=== PATIENT | male | born 1955 | race Caucasian/White ===

== ENCOUNTER → 2016-12-29 | Outpatient (CLI) | payer OTHER ==
[~2016-12-29] MED LIST: ADJUSTABLE COMM1 MIS; ALPR.25 PO; ALPR0.25 PO; CPMMACHINE; DICL75 PO; DICL75TA PO; FENO54TA PO; GABA600T PO; LISI-360 PO; LISI-515 PO; LORT5TAB PO; META1TAB19 PO; META800T81 OR; MORP1INJ45 OR; MORP1TAB25 PO; OXYC1TAB63 PO; PRAV80 PO; PRAV80TA2 PO; SERT-132 PO; WALKER WHEELS/F1 MIS
[2016-12-29 09:13] LABS: AUTOMATED NEUTROPHIL # 3.9 TH/MM3 (1.8-7.7); BASOPHIL # 0.1 TH/MM3 (0-0.2); BASOPHIL % 1.2 % (0.0-2.0); EOSINOPHIL # 0.3 TH/MM3 (0-0.4); EOSINOPHIL % 5.6 % (0.0-4.0); HEMATOCRIT 38.8 % (39.0-51.0); HEMO FLAGS DIFF FINAL; LYMPH % 23.2 % (9.0-44.0); LYMPHOCYTE # 1.4 TH/MM3 (1.0-4.8); MEAN CELL VOLUME 83.7 FL (80.0-100.0); MEAN CORPUSCULAR HEMOGLOBIN 28.3 PG (27.0-34.0); MEAN CORPUSCULAR HGB CONC 33.8 % (32.0-36.0); MONO % 5.9 % (0.0-8.0); NEUT % 64.1 % (16.0-70.0); PLATELET COUNT 230 TH/MM3 (150-450); RED BLOOD COUNT 4.63 MIL/MM3 (4.50-5.90); RED CELL DISTRIBUTION WIDTH 14.2 % (11.6-17.2)
[2016-12-29 09:15] LABS: APTT (PATIENT) 30.8 SEC (24.3-30.1); PROTHROMBIN TIME - PATIENT 10.9 SEC (9.8-11.6)
[2016-12-29 09:22] LABS: BLOOD, URINE NEG (NEG); COMMENT (UR) CULT NOT INDICATED; CULTURE IF INDICATED CULT NOT INDICATED; GLUCOSE,URINE NEG (NEG); KETONE, URINE NEG (NEG); MUCUS URINE FEW /lpf (OCC); NITRITE,URINE NEG (NEG); PH, URINE 6.5 (5.0-8.5); URINE COLOR YELLOW (YELLW/STRAW)
[2016-12-29 10:07] LABS: ANION GAP 7 MEQ/L (5-15); AST (GOT) 16 U/L (15-37); BICARBONATE 28.4 MEQ/L (21.0-32.0); BLOOD UREA NITROGEN 22 MG/DL (7-18); CHLORIDE 106 MEQ/L (98-107); GLOMERULAR FILTRATION RATE 80 ML/MIN (>89); GLUCOSE,FASTING 103 MG/DL (74-99); POTASSIUM 4.6 MEQ/L (3.5-5.1); SODIUM (NA) 141 MEQ/L (136-145)
[2016-12-29 10:11] LABS: ALKALINE PHOSPHATASE 76 U/L (45-117); ALT (GPT) 25 U/L (12-78); TOTAL BILIRUBIN ADULT 0.3 MG/DL (0.2-1.0)
--- NOTE | 2016-12-31 | EKG ---
Date Performed: 12/29/2016 Time Performed: 08:20:36 PTAGE: 61 years EKG: SINUS BRADYCARDIA BORDERLINE ECG NO PREVIOUS TRACING DOCTOR: Krysta Villafana Interpretating Date/Time 12/30/2016 23:59:28
== END ==
LOC: CPRE 08:00
PROVIDERS: ATTEND Surgery
DX: Z01.812 Encounter for preprocedural laboratory examination (principal); Z01.810 Encounter for preprocedural cardiovascular examination; R94.31 Abnormal electrocardiogram [ECG] [EKG]
CPT/HCPCS: 36415; 80053; 81001; 85025; 85610; 85730; 93005

== ENCOUNTER 2017-01-07 05:54 | Inpatient (IN) | payer OTHER ==
--- NOTE | 2017-01-06 19:25 | MH ---
cc: Addison NGUYEN M.D. DATE OF ADMISSION 01/07/2017 ADMISSION DIAGNOSIS Osteoarthritic degeneration both left and right knees now being admitted for bilateral total knee arthroplasty. ADMISSION HISTORY AND PHYSICAL This pleasant 61-year-old male is being admitted today for bilateral total knee arthroplasties due to severe painful osteoarthritic degeneration of his knees. PAST MEDICAL HISTORY Other past history: 1. He has a history of osteoarthritis. 2. Anxiety. 3. Hypertension. CURRENT MEDICATIONS 1. Morphine 30 mg three times a day for chronic pain control. 2. Metaxalone. 3. Gabapentin. 4. Voltaren which stopped before surgery. 5. Lisinopril. 6. Fenofibrate. 7. Pravastatin. 8. Alprazolam. 9. Sertraline. REVIEW OF SYSTEMS Noncontributory. FAMILY HISTORY Noncontributory. PAST SURGICAL HISTORY He had surgery in the past for both left and right shoulder replacements. SOCIAL HISTORY He does not smoke and does drink some alcohol. ALLERGIES NO KNOWN ALLERGIES. PHYSICAL EXAMINATION GENERAL: We find a 61-year-old male well-developed, well-nourished alert and oriented times three complaining of pain in his knees. VITAL SIGNS: Blood pressure 120/80, pulse 70 and regular, respirations 18, temperature 98, pulse oximetry 96% on room air. HEENT: Eyes PERRL, EOMI. Ears, nose, mouth clear. NECK: Supple. LUNGS: Clear. HEART: Regular rate. ABDOMEN: Soft. Positive bowel sounds. Nontender. EXTREMITIES: Reveal both knees be tender over the medial joint surfaces with crepitance throughout range of motion. He is neurovascularly intact to his toes. IMPRESSION Severe painful osteoarthritic degeneration both knees. PLAN Admission for bilateral total knee arthroplasty today. The patient understands the procedure well, understands the use Hibiclens scrub and Bactroban preoperatively and plans on going to rehab after surgery. MD RAMAKRISHNA Vivar/PATRICIA /7:00 PM /7:18 PM 20
[~2017-01-07] VITALS: Ht 175.3 cm; Wt 101.2 kg
[~2017-01-07 05:54] MED LIST changes: -ADJUSTABLE COMM1 MIS; -ALPR.25 PO; -CPMMACHINE; -DICL75 PO; -LISI-360 PO; -LORT5TAB PO; -META800T81 OR; -MORP1INJ45 OR; -OXYC1TAB63 PO; -PRAV80 PO; -WALKER WHEELS/F1 MIS
[2017-01-07] MEDS ORDERED: TRANEXAMIC ACID INJ 1,000 MG in SODIUM CHLORIDE 0.9% INJ 100 ML IV SCH ×2 (06:30→09:00)
[2017-01-07] MEDS ORDERED: METOPROLOL TARTRATE 25 MG TAB PO PRN (06:30)
[2017-01-07] MEDS ORDERED: EXPAREL PERI-ARTICULAR INJECTION (TOTAL VOL. 120 ML) P-ARTICULR SCH ×2 (06:30)
[2017-01-07] MEDS ORDERED: SODIUM CHLORID 0.9% 500 ML IV PRN (06:30)
[2017-01-07] MEDS ORDERED: VANCOMYCIN 1000 MG/NS 250 ML (for <70 kg) IV SCH ×2 (06:30)
[2017-01-07] MEDS ORDERED: CHLORHEXIDINE GLUCONATE 2 % 1 PACK (2 CLOTHS) TOPICAL PRN (06:30)
[2017-01-07] MEDS ORDERED: POVIDONE IODINE 5% (ANTISEPSIS KIT) 4 APPLICATIONS EACH NARE PRN (06:30)
[2017-01-07] MEDS ORDERED: INSULIN HUMAN REGULAR 1,000 UNITS/10 ML VIAL SQ PRN (06:30)
[2017-01-07] MEDS ORDERED: LACTATED RINGER'S 1000 ML IV PRN (06:30)
[2017-01-07] MEDS ORDERED: CHLORHEXIDINE GLUCONATE 4% SOLN 120 ML BTL TOPICAL SCH (06:30)
[2017-01-07] MEDS ORDERED: ceFAZolin 2 GM PREMIX 50 ML IV SCH (06:30)
[2017-01-07 06:37] VITALS: BP 109/68; PULSE 64; RESP 18; TEMP 98.5; O2SAT 97
[2017-01-07] MEDS ORDERED: MIDAZOLAM HCL 2 MG/2 ML VIAL ONE ×2 (07:40→13:03)
[2017-01-07] MEDS ORDERED: FAMOTIDINE 20 MG/2 ML VIAL ONE (07:40)
[2017-01-07] MEDS ORDERED: KETAMINE HCL 500 MG/5 ML VIAL ONE (08:00)
[2017-01-07] MEDS ORDERED: ceFAZolin INJ 1,000 MG VIAL TOPICAL ONE (08:31)
[2017-01-07] MEDS ORDERED: ROPIVACAINE 0.5% PF INJ 30 ML VIAL NERV BLOCK ONE (08:45)
[2017-01-07] MEDS ORDERED: DEXAMETHASONE SOD PHOS PF 10 MG/ML VIAL IV ONE (08:45)
[2017-01-07] MEDS ORDERED: ALPRAZolam 0.25 MG TAB PO PRN (12:00)
[2017-01-07] MEDS ORDERED: ceFAZolin INJ 1,000 MG VIAL IV ONE (12:05)
[2017-01-07] MEDS ORDERED: CPMMACHINE (12:10)
[2017-01-07] MEDS ORDERED: ADJUSTABLE COMM1 MIS (12:10)
[2017-01-07] MEDS ORDERED: WALKER WHEELS/F1 MIS (12:10)
[2017-01-07] MEDS ORDERED: Post-op Orders (for Pharmacy) MISC XX ONE (12:15)
[2017-01-07] MEDS ORDERED: diphenhydrAMINE HCL 50 MG/ML VIAL IV PRN (12:15)
[2017-01-07] MEDS ORDERED: TEMAZEPAM 15 MG CAP PO PRN (12:15)
[2017-01-07] MEDS ORDERED: ACETAMINOPHEN 325 MG TAB PO PRN (12:15)
[2017-01-07] MEDS ORDERED: NALOXONE HCL 0.4 MG/ML AMP IV PRN (12:15)
[2017-01-07] MEDS ORDERED: TRANEXAMIC ACID INJ 0 MG in SODIUM CHLORIDE 0.9% INJ 100 ML IV SCH (12:15)
[2017-01-07] MEDS ORDERED: ONDANSETRON HCL 4 MG/2 ML VIAL IVP PRN (12:15)
[2017-01-07] MEDS ORDERED: SODIUM CHLORIDE 0.9% FLUSH 5 ML FLUSH IVF PRN (12:15)
[2017-01-07] MEDS ORDERED: DO NOT ADM ANY ANTICOAGULANT DRUGS PRN (12:30)
[2017-01-07] MEDS ORDERED: *ONDANSETRON 4 MG VIAL PERIprocedural Use ONLY ONE (12:35)
--- NOTE | 2017-01-07 12:43 | HHI.PR ---
Immediate Post Op Note Procedure Date: Jan 07, 2017 Pre Op Diagnosis: (1) Osteoarthritis of knees, bilateral Post Op Diagnosis: (1) Osteoarthritis of knees, bilateral Surgeon: Addison Worley [employer] Counselor(s): Nilda ONEILL and Jazmine ONEILL Procedure: Bilateral total knee Arthroplasty Complications: none Specimen(s) removed: none Estimated blood loss: 200cc Anesthesia: General, Regional Block (blocks bilateral knees) Drains: None IVF Tourniquet time (min at mmHg) Time Right Knee 80 mins Time Left Knee 83 mins Patient to: PACU Patient Condition: Good Implant/Devices: SEE IMPLANT LOG (if applicable) Date/Time of Procedure: SEE SURGICAL CARE RECORD Nilda Martínez Jan 07, 2017 12:43
[2017-01-07] MEDS ORDERED: *HYDROmorphone PF 1 MG VIAL PERIprocedural Use ONLY ONE (12:53)
[2017-01-07] MEDS ORDERED: fentaNYL CITRATE 250 MCG/5 ML AMP ONE (13:03)
[2017-01-07] MEDS ORDERED: ACETAMINOPHEN 1000 MG/100 ML VIAL IV ONE ×2 (13:19→14:30)
--- NOTE | 2017-01-07 13:32 | RADRPT ---
EXAM DATE/TIME: 01/07/2017 13:20 [facility] COMPARISON: No previous studies available for comparison. INDICATIONS : Evaluate right knee post arthroplasty MEDICAL HISTORY : Arthritis. SURGICAL HISTORY : None. ENCOUNTER: Initial ACUITY: 1 day PAIN SCORE: 6/10 LOCATION: Right Knee FINDINGS: Patient is status post placement of a right knee prosthesis. There is good position and alignment of the prosthesis and bony structures. The bony structures are grossly intact. Postsurgical changes are present. CONCLUSION: Good position and alignment on this postoperative examination. German Dorsey MD on January 07, 2017 at 13:29 Board Certified Radiologist. This report was verified electronically.
--- NOTE | 2017-01-07 13:32 | RADRPT ---
EXAM DATE/TIME: 01/07/2017 13:16 [facility] COMPARISON: No previous studies available for comparison. INDICATIONS : Evaluate left knee post arthroplasty MEDICAL HISTORY : Arthritis. SURGICAL HISTORY : None. ENCOUNTER: Initial ACUITY: 1 day PAIN SCORE: 6/10 LOCATION: Left Knee FINDINGS: Patient is status post placement of a left knee prosthesis. There is good position and alignment of t he prosthesis and bony structures. The bony structures are grossly intact. Postsurgical changes are p resent. CONCLUSION: Good position and alignment on this postoperative examination. German Dorsey MD on January 07, 2017 at 13:29 Board Certified Radiologist. This report was verified electronically.
[2017-01-07] MEDS ORDERED: PROPOFOL 200 MG/20 ML AMP IV ONE (13:52)
[2017-01-07] MEDS ORDERED: PHENYLEPH/NS 1000 MCG/10 ML SYR IV ONE (13:53)
[2017-01-07] MEDS ORDERED: LACTATED RINGER'S 1000 ML INJ 1,000 ML IV ONE (13:53)
[2017-01-07] MEDS ORDERED: ePHEDrine/NS 25 MG/5 ML SYR IV ONE (13:53)
[2017-01-07] MEDS ORDERED: ONDANSETRON HCL 4 MG/2 ML VIAL IV PUSH ONE (13:53)
[2017-01-07] MEDS ORDERED: *morphine SULFATE 8 MG/ML PERIprocedure ONLY ONE (13:54)
[2017-01-07] MEDS: MORPHINE SULFATE 30 MG/30 ML PCA IV SCH ×2 (13:58→23:00)
[2017-01-07] MEDS: PCA - TOTAL MG MORPHINE DELIVERED PER SHIFT SCH ×2 (14:00→22:00)
--- NOTE | 2017-01-07 15:28 | PD.CONS ---
HPI Service [facility] Hospitalists Consult Requested By Dr. Worley Reason for Consult Medical management and assistance with pain control Primary Care Physician Bear Alarcon DO Diagnoses: (1) Osteoarthritis of knees, bilateral (2) Status post total bilateral knee replacement using cement History of Present Illness Mr. Andrade is a 61-year-old male patient with a known medical history of osteoarthritis of bilateral knee and shoulders, hypertension, dyslipidemia, anxiety and chronic back pain due to degenerative disc disease who underwent a bilateral knee replacement by Dr. Worley today 01/07/17. Hospitalist team has been consulted for medical management and assisting with pain control. Patient states that he underwent right and left shoulder replacements back in 2014 and 2015 due to chronic osteoarthritis of bilateral shoulders. Patient also has been treating bilateral osteoarthritis of the knees with conservative management for many years now. He states he utilized cortisone shots, physical therapy and pain control with little effect. He also has a history of degenerative disc disease in L1, L2, and S1 for many years now. He utilizes chiropractic medicine, physical therapy, and pain medication via [facility]. Patient states his hypertension and dyslipidemia are well controlled with medication. Denies any recent illness, fever, chills, cough, headache, shortness of breath, chest pain, abdominal pain, nausea, vomiting, diarrhea or dysuria. Review of Systems Musculoskeletal: COMPLAINS OF: Joint pain (bilateral knees) Except as stated in HPI: all other systems reviewed are Neg Past Family Social History Allergies: Coded Allergies: No Known Allergies (Unverified , 12/29/16) Past Medical History Anxiety Hypertension Dyslipidemia Osteoarthritis of bilateral knees and shoulders Chronic back pain Past Surgical History Bilateral shoulder replacement 2015 Reported Medications Reported Meds & Active Scripts Active Reported Sertraline (Sertraline HCl) 50 Mg Tab 50 Mg PO DAILY Pravastatin 80 Mg Tab 80 Mg PO HS Metaxalone 800 Mg Tab 800 Mg PO TID Morphine ER (Morphine Sulfate) 30 Mg Tab 30 Mg PO Q8H Lisinopril 20 Mg Tab 20 Mg PO HS Gabapentin 600 Mg Tab 600 Mg PO TID Fenofibrate 54 Mg Tab 54 Mg PO DAILY Diclofenac Sodium DR (Diclofenac Sodium) 75 Mg Tabdr 75 Mg PO BID Alprazolam 0.25 Mg Tab 0.25 Mg PO DAILY PRN Active Ordered Medications Current Medications Medications (Trade) Dose Ordered Sig/Sneha Route Start Time Stop Time Status Last Admin Chlorhexidine Gluconate 1 applic 1 applic ONCE TOPICAL 01/07/17 06:30 01/10/17 06:29 Tranexamic Acid 1000 mg/Sodium Chloride 110 ml @ 200 mls/hr ONCE IV 01/07/17 06:30 01/07/17 16:00 01/07/17 08:16 Bupivacaine Liposome 20 ml/ Sodium Chloride 120 ml @ 240 mls/hr ONCE P-ARTICULR 01/07/17 06:30 01/07/17 16:00 (Cyklokapron Inj/ NS Inj) 110 ml @ 200 mls/hr ONCE IV 01/07/17 09:00 01/08/17 08:59 01/07/17 11:15 (Xanax) 0.25 mg DAILY PRN PO 01/07/17 12:00 (Neurontin) 600 mg TID PO 01/07/17 13:00 (Prinivil) 20 mg HS PO 01/07/17 21:00 (Skelaxin) 800 mg TID PO 01/07/17 18:00 (Oramorph Sr) 30 mg Q8HR PO 01/07/17 14:00 (Pravachol) 80 mg HS PO 01/07/17 21:00 (Zoloft) 50 mg DAILY PO 01/08/17 09:00 Fenofibrate 48 mg 48 mg DAILY PO 01/08/17 09:00 (Lr 1000 ml Inj) 1,000 ml @ 80 mls/hr [id number] IV 01/07/17 12:01 (NS Flush) 2 ml UNSCH PRN IVF 01/07/17 12:15 IV Flush 2 ml 2 ml BID IVF 01/07/17 21:00 (Ancef Inj/NS Inj) 100 ml @ 200 mls/hr Q6H IV 01/07/17 18:00 01/08/17 06:29 (Lovenox Inj) 30 mg Q12H SQ 01/08/17 12:00 (Percocet 5-325 Mg) 1 tab Q4H PRN PO 01/07/17 12:15 (Percocet 5-325 Mg) 2 tab Q4H PRN PO 01/07/17 12:15 (Tylenol) 650 mg Q6H PRN PO 01/07/17 12:15 (Theragran M Tab) 1 tab BID PO 01/08/17 21:00 03/09/17 20:59 (Zofran Inj) 4 mg Q6H PRN IVP 01/07/17 12:15 (Colace) 100 mg BID PO 01/08/17 21:00 (Restoril) 15 mg HS PRN PO 01/07/17 12:15 (Narcan Inj) 0.4 mg UNSCH PRN IV 01/07/17 12:15 (Benadryl Inj) 25 mg Q6H PRN IV 01/07/17 12:15 (Morphine 1 Mg/ ml TABLE TOP TILE SETTER) 30 mg UNSCH IV 01/07/17 12:15 01/07/17 13:58 TABLE TOP TILE SETTER Dosage Infused (Pha) 1 Q8HR .XX 01/07/17 14:00 Miscellaneous Information ALL NURSING DEPARTME... UNSCH PRN .XX 01/07/17 12:30 01/08/17 12:29 Family History No significant paternal medical history. Maternal medical history significant for diabetes mellitus. Social History Patient lives at home with , no children. Denies any past or present tobacco use. Admits to occasional alcohol use. Denies any illicit drug use. Physical Exam Vital Signs Vital Signs Date Time Temp Pulse Resp B/P Pulse Ox O2 Delivery O2 Flow Rate FiO2 01/07/17 13:58 16 01/07/17 06:37 98.5 64 18 109/68 97 Physical Exam GENERAL: Well-nourished, well-developed patient, in no apparent distress. SKIN: warm and dry. Bilateral knee passive motion in place, bilateral knee/leg dressings in place, c/d/i. HEENT: Atraumatic. Normocephalic. Pupils equal round and reactive. Extraocular motions intact. No scleral icterus. Nose without bleeding. Airway patent. NECK: Trachea midline. No JVD. Supple. CARDIOVASCULAR: Regular rate and rhythm. No murmur appreciated. RESPIRATORY: Clear to auscultation. Breath sounds equal bilaterally. No wheezes , rales, or rhonchi. GASTROINTESTINAL: Abdomen soft, non-tender, nondistended. No guarding. MUSCULOSKELETAL: Extremities without clubbing, cyanosis, or edema. NEUROLOGICAL: Awake and alert. Cranial nerves II through XII intact. Motor and sensory grossly within normal limits. Five out of 5 muscle strength in all muscle groups. Normal speech. Laboratory Laboratory Tests Test 7/6/17 06:45 Blood Type AB POSITIVE Antibody Screen NEGATIVE Blood Bank Comment Imaging Last Impressions Knee X-Ray 01/07/17 1201 Signed Impressions: Service Date/Time: January 13:16 - CONCLUSION: Good position and alignment on this postoperative examination. German Dorsey MD Assessment and Plan Assessment and Plan Mr. Andrade is a 61-year-old male patient with a known medical history of osteoarthritis of bilateral knee and shoulders, hypertension, dyslipidemia, anxiety and chronic back pain due to degenerative disc disease who underwent a bilateral knee replacement by Dr. Worley today 01/07/17. Hospitalist team has been consulted for medical management and assisting with pain control. Status post bilateral knee replacement - Post op day 0, 01/07/17 - Control pain, Oramorph SR 30 mg PO q8hr. Percocet 5/325 mg PO q4h PRN per pain scale. Morphine TABLE TOP TILE SETTER IV per protocol. - Monitor for nausea, Zofran 4 mg IV q6h - Acetaminophen available PRN fever. - Continue IVF until tolerating PO. Encourage PO intake as tolerated. - Monitor for constipation, Colace 100 mg PO BID, - Dressing change recommendations and passive motion management per surgery. Hypertension, chronic: Resume Lisinopril. Monitor BP. Dyslipidemia, chronic: Resume home fenofibrate and Pravastatin Anxiety, chronic: Alprazolam 0.25 mg PO daily PRN anxiety and resume home Sertraline 50 mg PO daily. Back pain, chronic: Gabapentin 600 mg PO TID and Metaxalone 800 mg PO TID. GI Prophylaxis: Pepcid DVT Prophylaxis: Lovenox 30 mg sq q12 hr. Thank you for this consultation. We will follow with you. Seen in his bedroom stable, no nausea, vomit or diarrhea, examined status post surgery, added laboratory for tomorrow, CMP, Magnesium, Phosphorus Lipid profile and TSH Code Status Full Code Discussed Condition With Patient and PA Anastacia Loaiza Jan 07, 2017 15:27 Ranjith Villatoro MD Jan 07, 2017 17:35
[2017-01-07] MEDS ORDERED: MAGNESIUM HYDROXIDE SUSP 30 ML CUP PO PRN (15:30)
[2017-01-07 15:43] VITALS: BP 121/66; PULSE 98; RESP 20; TEMP 95.6; O2SAT 98
[2017-01-07 16:22] VITALS: O2SAT 99
[2017-01-07] MEDS: GABAPENTIN 300 MG CAP PO SCH ×2 (16:51→20:09)
[2017-01-07] MEDS: MORPHINE SULFATE 30 MG CONTROLLED RELEASE TAB PO SCH (16:52)
[2017-01-07] MEDS: METAXALONE 800 MG TAB PO SCH (18:00)
[2017-01-07 19:40] VITALS: BP 111/70; PULSE 96; RESP 18; TEMP 98.1; O2SAT 95
[2017-01-07] MEDS: oxyCODONE/ACETAMINOPHEN 5 MG/325 MG TAB PO PRN (20:09)
[2017-01-07] MEDS: PRAVASTATIN SOD 80 MG TAB PO SCH (20:09)
[2017-01-07] MEDS: SODIUM CHLORIDE 0.9% FLUSH 5 ML FLUSH IVF SCH (21:00)
[2017-01-07] MEDS: LISINOPRIL 20 MG TAB PO SCH (21:00)
--- NOTE | 2017-01-07 21:45 | MP ---
cc: Addison NGUYEN M.D. DATE OF SURGERY: 01/07/2017. PREOPERATIVE DIAGNOSIS: Osteoarthritic degeneration both left and right knees. POSTOPERATIVE DIAGNOSIS: Osteoarthritic degeneration both left and right knees. OPERATIVE PROCEDURE PERFORMED: Bilateral total knee arthroplasties using Consensus components; the right knee done first and sizes were a size 5 femur, a 5 tibia, a 10 insert and a size 2 patella with two batches of DePuy cement and the left knee being a size 5 femur, 4 tibia, 12 insert and a size 2 patella with two batches of DePuy cement. SURGEON: Addison Nguyen MD. PRIMARY TEACHER: NINO Hart. SECOND MEDICAL RECORDS FIELD TECHNICIAN: NINO Guillaume. ANESTHESIA: General intubation and blocks. DESCRIPTION OF THE PROCEDURE IN DETAIL: After successful induction of anesthesia, the patient is placed on the operating room table in the supine position. The right knee is prepped and draped in the usual manner. A tourniquet is inflated at the upper thigh and set to 300 mmHg pressure after exsanguination of the lower extremity. A longitudinal incision is made extending from 3 inches proximal to the superior pole of the patella, across the patella in longitudinal fashion, and down past the insertion of the tibial tubercle into the proximal tibia. The incision is carried down through subcutaneous tissue along the medial aspect of the patella and retinaculum, down through the capsule to expose the knee joint. The patella and patellar tendon are freed up enough to allow the patella to be inverted and retracted off the lateral side of the knee joint. The knee joint is left exposed. Small osteophytes are removed. All soft tissue is removed to allow proper position of the femoral and tibial cutting jig guide. The first femoral jig is then inserted along the distal end of the femur after first measuring to decide whether this is a small, medium, or large component. The notch is then drilled and the tibial cutting guide inserted into the femoral cutting guide, along with the ankle brace to allow for proper measurement of the tibial cutting surface that needed to be resected. Pins are inserted into the tibial cutting jig and femoral cutting jig to hold them in place. An oscillating saw is then used to resect the surface of the tibia. The surface of the tibia is then completely removed using sharp and blunt dissection. The anterior and posterior cuts of the femur are then made as well using an oscillating saw through the cutting guide. All guides are then removed and the varus/valgus angulation cutting guide applied to the femur for proper measurement of the proper amount of valgus. The anterior cutting guide for the femur is then inserted at the anterior femoral cuts made. Next, the first block trial is inserted into the femur to allow for proper condyle drill holes to be made which are then made followed by removal of the bone between the condyles using an oscillating saw as well as the bone removed at the most posterior surface of the condyle. After this, this guide is removed and the chamfer cuts made using the chamfer cutting guide from both anterior and posterior. Next, the femoral trial is then inserted, the tibial surface reflected anterior to expose the tibial surface and a tibial stem guide is inserted after first measuring for a standard, standard plus, large, or large plus surface to be used. After the stem is impacted the trial tibial surface is applied followed by the trial meniscal components. After full range of motion is found with the appropriate length meniscal components varying the patella is prepared by resecting the posterior aspect of the patella using an oscillating saw, inserting a trial. The trial is then removed and the cruciate cutting guide applied using the bur to cut the cruciate cuts. After cruciate cuts are made all trials are removed. The wound is irrigated copiously with antibiotic solution and Water Pick and the actual components inserted into place using the aforementioned components. After the cement has hardened and the components are found to have full range of motion with no instability, the tourniquet is deflated, total tourniquet time being 69 minutes at 300 mmHg pressure, 60 cc of Exparel was inserted around the knee joint for extra pain control. The wound again is irrigated copiously with antibiotic solution, meticulous hemostasis achieved. Two Autovac tubes inserted, followed by closure of the deep fascia with both running #2 Quill, subcutaneous tissue approximated using interrupted and running 2-0 and 4-0 Vicryl sutures, Steri-Strips, sterile dressings and knee immobilizer. No drain utilized. The left knee was now prepped and draped in the usual manner. A tourniquet is inflated at the upper thigh and set to 300 mmHg pressure after exsanguination of the lower extremity. A longitudinal incision is made extending from 3 inches proximal to the superior pole of the patella, across the patella in longitudinal fashion, and down past the insertion of the tibial tubercle into the proximal tibia. The incision is carried down through subcutaneous tissue along the medial aspect of the patella and retinaculum, down through the capsule to expose the knee joint. The patella and patellar tendon are freed up enough to allow the patella to be inverted and retracted off the lateral side of the knee joint. The knee joint is left exposed. Small osteophytes are removed. All soft tissue is removed to allow proper position of the femoral and tibial cutting jig guide. The first femoral jig is then inserted along the distal end of the femur after first measuring to decide whether this is a small, medium, or large component. The notch is then drilled and the tibial cutting guide inserted into the femoral cutting guide, along with the ankle brace to allow for proper measurement of the tibial cutting surface that needed to be resected. Pins are inserted into the tibial cutting jig and femoral cutting jig to hold them in place. An oscillating saw is then used to resect the surface of the tibia. The surface of the tibia is then completely removed using sharp and blunt dissection. The anterior and posterior cuts of the femur are then made as well using an oscillating saw through the cutting guide. All guides are then removed and the varus/valgus angulation cutting guide applied to the femur for proper measurement of the proper amount of valgus. The anterior cutting guide for the femur is then inserted at the anterior femoral cuts made. Next, the first block trial is inserted into the femur to allow for proper condyle drill holes to be made which are then made followed by removal of the bone between the condyles using an oscillating saw as well as the bone removed at the most posterior surface of the condyle. After this, this guide is removed and the chamfer cuts made using the chamfer cutting guide from both anterior and posterior. Next, the femoral trial is then inserted, the tibial surface reflected anterior to expose the tibial surface and a tibial stem guide is inserted after first measuring for a standard, standard plus, large, or large plus surface to be used. After the stem is impacted the trial tibial surface is applied followed by the trial meniscal components. After full range of motion is found with the appropriate length meniscal components varying the patella is prepared by resecting the posterior aspect of the patella using an oscillating saw, inserting a trial. The trial is then removed and the cruciate cutting guide applied using the bur to cut the cruciate cuts. After cruciate cuts are made all trials are removed. The wound is irrigated copiously with antibiotic solution and Water Pick and the actual components inserted into place using the aforementioned components. After the cement has hardened and the components are found to have full range of motion with no instability, the tourniquet is deflated, total tourniquet time being 67 minutes at 300 mmHg pressure. 60 cc of Exparel was used around the knee joint for extra pain control. The wound again is irrigated copiously with antibiotic solution, meticulous hemostasis achieved. Two Autovac tubes inserted, followed by closure of the deep fascia with both running #2 Quill, subcutaneous tissue approximated using interrupted and running 2-0 and 4-0 Monocryl sutures, Steri-Strips and sterile dressing and knee immobilizer. No drain was utilized. Total estimated blood loss was 300 cc. Sponge and suture counts were correct. NOTE: NINO Hart, the international first officer, and NINO Guillaume, the second agency sales management assistant, were present during the entire procedure to include patient positioning and the procedure. The medical necessity of the two assistants, the nurse practitioner first and the second agency sales management assistant was indicated in this case due to the surgical complexity of the case itself. During the surgical case, the certified medical technician assistant was working at the back table while my medical practice assistant and second assistants (ARNPs) were directly assisting me. The patient tolerated the procedure well and left the operating room in satisfactory condition. MD RAMAKRISHNA Vivar/JEYSON /12:18 PM /9:33 PM
[2017-01-08] MEDS: LACTATED RINGER'S 1000 ML INJ 1,000 ML IV SCH ×3 (00:31→13:45)
[2017-01-08 00:59] VITALS: BP 128/79; PULSE 103; RESP 19; TEMP 98.6; O2SAT 98
[2017-01-08] MEDS: MORPHINE SULFATE 30 MG CONTROLLED RELEASE TAB PO SCH ×4 (00:59→22:16)
[2017-01-08] MEDS: oxyCODONE/ACETAMINOPHEN 5 MG/325 MG TAB PO PRN ×5 (04:26→20:56)
[2017-01-08 04:30] VITALS: BP 110/79; PULSE 103; RESP 17; TEMP 98.2; O2SAT 96
[2017-01-08] MEDS: PCA - TOTAL MG MORPHINE DELIVERED PER SHIFT SCH ×2 (05:30→13:46)
[2017-01-08 07:24] LABS: REVIEW FLAG FINAL
[2017-01-08 07:41] LABS: ANION GAP 6 MEQ/L (5-15); AST (GOT) 21 U/L (15-37); BICARBONATE 28.3 MEQ/L (21.0-32.0); BLOOD UREA NITROGEN 19 MG/DL (7-18); CHLORIDE 104 MEQ/L (98-107); GLOMERULAR FILTRATION RATE 69 ML/MIN (>89); MAGNESIUM 1.9 MG/DL (1.5-2.5); SODIUM (NA) 138 MEQ/L (136-145)
[2017-01-08 07:42] LABS: ALT (GPT) 22 U/L (12-78)
[2017-01-08 07:50] LABS: ALKALINE PHOSPHATASE 67 U/L (45-117); HDL CHOLESTEROL 40.2 MG/DL (40.0-60.0); LDL CHOLESTEROL 43 MG/DL (0-99); TOTAL BILIRUBIN ADULT 0.5 MG/DL (0.2-1.0)
[2017-01-08 07:56] VITALS: BP 115/73; PULSE 100; RESP 20; TEMP 99.9; O2SAT 92
[2017-01-08] MEDS: GABAPENTIN 300 MG CAP PO SCH ×3 (08:06→16:37)
[2017-01-08] MEDS: POLYETHYLENE GLYCOL 17 GM PKG PO SCH (08:06)
[2017-01-08] MEDS: SERTRALINE HCL 50 MG TAB PO SCH (08:08)
[2017-01-08] MEDS: FENOFIBRATE 48 MG TAB PO SCH (08:08)
[2017-01-08] MEDS: METAXALONE 800 MG TAB PO SCH ×3 (08:08→16:38)
--- NOTE | 2017-01-08 08:31 | HHI.PR ---
Subjective Remarks Follow up bilateral knee replacement. Patient seen and examined today, awake and alert sitting up in bed eating breakfast. Patient states that pain is well controlled. Rested well overnight. Tolerating PO intake, denies any nausea or vomiting. Patient denies any recent fever, chills, cough, shortness of breath, abdominal pain, diarrhea or dysuria. Denies any numbness or paresthesia in bilateral legs and feet. Adequate UO and no BM as of yet. Objective Vitals Vital Signs Date Time Temp Pulse Resp B/P Pulse Ox O2 Delivery O2 Flow Rate FiO2 01/08/17 07:56 99.9 100 20 115/73 92 01/08/17 04:30 98.2 103 17 110/79 96 01/08/17 00:59 98.6 103 19 128/79 98 01/07/17 23:00 18 01/07/17 19:40 98.1 96 18 111/70 95 01/07/17 19:07 Room Air 01/07/17 18:17 16 01/07/17 17:42 16 01/07/17 16:22 99 Nasal Cannula 2.00 01/07/17 15:43 95.6 98 20 121/66 98 01/07/17 14:15 94 16 133/78 96 Nasal Cannula 2 01/07/17 14:00 88 16 136/80 97 Nasal Cannula 2 01/07/17 13:58 16 01/07/17 13:45 96 16 136/83 99 Nasal Cannula 2 01/07/17 13:30 95 16 134/83 97 Nasal Cannula 2 01/07/17 13:15 97 16 132/98 96 Nasal Cannula 2 01/07/17 13:00 100 16 141/94 98 Nasal Cannula 2 01/07/17 12:45 105 16 152/69 95 Nasal Cannula 4 01/07/17 12:27 98.1 103 16 147/87 94 Nasal Cannula 4 I/O 01/07/17 01/07/17 01/07/17 01/08/17 01/08/17 01/08/17 07:00 15:00 23:00 07:00 15:00 23:00 Intake Total 1750 ml 1471 ml 1624 ml Output Total 300 ml 650 ml 2450 ml Balance 1450 ml 821 ml -826 ml Intake Oral 480 ml 960 ml IV Total 150 ml 991 ml 664 ml Other 1600 ml Output Urine Total 0 ml 650 ml 2450 ml Estimated Blood Loss 300 ml # Bowel Movements 0 0 Result Diagram: 01/08/17 0625 01/08/17 0625 Other Results Laboratory Tests Test 01/07/17 01/08/17 06:45 06:25 Blood Type AB POSITIVE Antibody Screen NEGATIVE Blood Bank Comment Hemoglobin 10.7 GM/DL Hematocrit 33.0 % Sodium Level 138 MEQ/L Potassium Level 4.0 MEQ/L Chloride Level 104 MEQ/L Carbon Dioxide Level 28.3 MEQ/L Anion Gap 6 MEQ/L Blood Urea Nitrogen 19 MG/DL Creatinine 1.09 MG/DL Estimat Glomerular Filtration 69 ML/MIN Rate Random Glucose 127 MG/DL Calcium Level 8.3 MG/DL Phosphorus Level 2.4 MG/DL Magnesium Level 1.9 MG/DL Total Bilirubin 0.5 MG/DL Aspartate Amino Transf 21 U/L (AST/SGOT) Alanine Aminotransferase 22 U/L (ALT/SGPT) Alkaline Phosphatase 67 U/L Total Protein 6.3 GM/DL Albumin 3.4 GM/DL Triglycerides Level 97 MG/DL Cholesterol Level 103 MG/DL LDL Cholesterol 43 MG/DL HDL Cholesterol 40.2 MG/DL Cholesterol/HDL Ratio 2.56 RATIO Thyroid Stimulating Hormone 0.670 uIU/ML 3rd Gen Imaging Last Impressions Knee X-Ray 01/07/17 1201 Signed Impressions: Service Date/Time: January 13:16 - CONCLUSION: Good position and alignment on this postoperative examination. German Dorsey MD Objective Remarks GENERAL: Well-nourished, well-developed patient, in no apparent distress. SKIN: warm and dry. Bilateral knee/leg dressings in place, c/d/i. HEENT: Atraumatic. Normocephalic. Pupils equal round and reactive. Extraocular motions intact. No scleral icterus. Nose without bleeding. Airway patent. NECK: Trachea midline. No JVD. Supple. CARDIOVASCULAR: Regular rate and rhythm. No murmur appreciated. RESPIRATORY: Clear to auscultation. Breath sounds equal bilaterally. No wheezes , rales, or rhonchi. GASTROINTESTINAL: Abdomen soft, non-tender, nondistended. No guarding. MUSCULOSKELETAL: Extremities without clubbing, cyanosis, or edema. NEUROLOGICAL: Awake and alert. Cranial nerves II through XII intact. Motor and sensory grossly within normal limits. Five out of 5 muscle strength in all muscle groups. Normal speech. Procedures Status post Bilateral Knee replacement 01/07/17 Medications and IVs Current Medications Medications (Trade) Dose Ordered Sig/Sneha Route Start Time Stop Time Status Last Admin (Hibiclens 4% Top Soln) 1 applic ONCE TOPICAL 01/07/17 06:30 01/10/17 06:29 (Xanax) 0.25 mg DAILY PRN PO 01/07/17 12:00 (Neurontin) 600 mg TID PO 01/07/17 13:00 01/08/17 12:38 (Prinivil) 20 mg HS PO 01/07/17 21:00 01/07/17 21:00 (Skelaxin) 800 mg TID PO 01/07/17 18:00 01/08/17 12:40 (Oramorph Sr) 30 mg Q8HR PO 01/07/17 14:00 01/08/17 12:37 (Pravachol) 80 mg HS PO 01/07/17 21:00 01/07/17 20:09 (Zoloft) 50 mg DAILY PO 01/08/17 09:00 01/08/17 08:08 Fenofibrate 48 mg 48 mg DAILY PO 01/08/17 09:00 01/08/17 08:08 (Lr 1000 ml Inj) 1,000 ml @ 80 mls/hr [id number] IV 01/07/17 12:01 01/08/17 13:45 (NS Flush) 2 ml UNSCH PRN IVF 01/07/17 12:15 (NS Flush) 2 ml BID IVF 01/07/17 21:00 01/08/17 09:00 (Lovenox Inj) 30 mg Q12H SQ 01/08/17 12:00 01/08/17 12:38 (Percocet 5-325 Mg) 1 tab Q4H PRN PO 01/07/17 12:15 01/08/17 08:06 (Percocet 5-325 Mg) 2 tab Q4H PRN PO 01/07/17 12:15 01/08/17 12:39 (Tylenol) 650 mg Q6H PRN PO 01/07/17 12:15 (Theragran M Tab) 1 tab BID PO 01/08/17 21:00 03/09/17 20:59 (Zofran Inj) 4 mg Q6H PRN IVP 01/07/17 12:15 (Colace) 100 mg BID PO 01/08/17 21:00 (Restoril) 15 mg HS PRN PO 01/07/17 12:15 (Milk Of Magnesia Liq) 30 ml DAILY PRN PO 01/07/17 15:30 (Miralax) 17 gm DAILY PO 01/08/17 09:00 01/08/17 08:06 A/P Problem List: (1) Osteoarthritis of knees, bilateral ICD Code: M17.0 Status: Acute (2) Status post total bilateral knee replacement using cement ICD Code: Z96.653 Status: Acute Assessment and Plan Mr. Andrade is a 61-year-old male patient with a known medical history of osteoarthritis of bilateral knee and shoulders, hypertension, dyslipidemia, anxiety and chronic back pain due to degenerative disc disease who underwent a bilateral knee replacement by Dr. Worley today 01/07/17. Hospitalist team has been consulted for medical management and assisting with pain control. Status post bilateral knee replacement - Post op day 1, 01/07/17 - Control pain, Oramorph SR 30 mg PO q8hr. Percocet 5/325 mg PO q4h PRN per pain scale. Morphine TEXTBOOK ASSOCIATE IV per protocol. Adequately controlled at this time. - Monitor for nausea, Zofran 4 mg IV q6h. Denies any current nausea. - Acetaminophen available PRN fever. Afebrile. - Encourage PO intake as tolerated. - No BM as of yet. Monitor for constipation, Colace 100 mg PO BID, Miralax scheduled and Dulcolax supp PRN. - Dressing change recommendations. Hypertension, chronic: Resume Lisinopril. Monitor BP. Controlled. Dyslipidemia, chronic: Resume home fenofibrate and Pravastatin Anxiety, chronic: Alprazolam 0.25 mg PO daily PRN anxiety and resume home Sertraline 50 mg PO daily. Back pain, chronic: Gabapentin 600 mg PO TID and Metaxalone 800 mg PO TID. GI Prophylaxis: Pepcid DVT Prophylaxis: Lovenox 30 mg sq q12 hr. Discharge Planning Plan for DC Wednesday01/10/17 to inpatient rehab, recommendations per ortho sx. Attending Statement Patient seen in his bedroom, discussed with PA Mrs. Anastacia Perera evaluated and read chart, has stable vital signs and Laboratory evaluated and also within normal limits. Anastacia Perera Jan 08, 2017 08:31 Ranjith Villatoro MD Jan 08, 2017 16:38
[2017-01-08] MEDS ORDERED: POLYETHYLENE GLYCOL 17 GM PKG PO SCH (09:00)
[2017-01-08] MEDS: SODIUM CHLORIDE 0.9% FLUSH 5 ML FLUSH IVF SCH ×2 (09:00→19:39)
--- NOTE | 2017-01-08 11:07 | PD.ORT.PN ---
Subjective Subjective Remarks pt basically comfortable. Sitting up in chair. Objective Vitals Vital Signs Date Time Temp Pulse Resp B/P Pulse Ox O2 Delivery O2 Flow Rate FiO2 01/08/17 07:56 99.9 100 20 115/73 92 01/08/17 04:30 98.2 103 17 110/79 96 01/08/17 00:59 98.6 103 19 128/79 98 01/07/17 23:00 18 01/07/17 19:40 98.1 96 18 111/70 95 01/07/17 19:07 Room Air 01/07/17 18:17 16 01/07/17 17:42 16 01/07/17 16:22 99 Nasal Cannula 2.00 01/07/17 15:43 95.6 98 20 121/66 98 01/07/17 14:15 94 16 133/78 96 Nasal Cannula 2 01/07/17 14:00 88 16 136/80 97 Nasal Cannula 2 01/07/17 13:58 16 01/07/17 13:45 96 16 136/83 99 Nasal Cannula 2 01/07/17 13:30 95 16 134/83 97 Nasal Cannula 2 01/07/17 13:15 97 16 132/98 96 Nasal Cannula 2 01/07/17 13:00 100 16 141/94 98 Nasal Cannula 2 01/07/17 12:45 105 16 152/69 95 Nasal Cannula 4 01/07/17 12:27 98.1 103 16 147/87 94 Nasal Cannula 4 I/O 01/07/17 01/07/17 01/07/17 01/08/17 01/08/17 01/08/17 07:00 15:00 23:00 07:00 15:00 23:00 Intake Total 1750 ml 1471 ml 1624 ml Output Total 300 ml 650 ml 2450 ml Balance 1450 ml 821 ml -826 ml Intake Oral 480 ml 960 ml IV Total 150 ml 991 ml 664 ml Other 1600 ml Output Urine Total 0 ml 650 ml 2450 ml Estimated Blood Loss 300 ml # Bowel Movements 0 0 Result Diagram: 01/08/17 0625 01/08/17 0625 Imaging Last 24 hours Impressions Knee X-Ray 01/07/17 1201 Signed Impressions: Service Date/Time: January 13:16 - CONCLUSION: Good position and alignment on this postoperative examination. German J. Siragusa, MD Objective Remarks Dressings dry and intact. No calf tenderness. Assessment & Plan Ortho Post Op Day #: 1 Problem List: Assessment and Plan Cont PT, daily wound care. [place] rehab soon. DC BUILDING PERFORMANCE CONSULTANT Addison Worley MD Jan 08, 2017 11:07
[2017-01-08] MEDS ORDERED: OXYC1TAB63 PO (11:08)
--- NOTE | 2017-01-08 11:13 | HHI.DS ---
Discharge Summary Admission Date Jan 07, 2017 at 08:32 Discharge Date: Jan 09, 2017 Admitting Diagnosis osteoarthritic degeneration both knees. Diagnosis: (1) Status post total bilateral knee replacement using cement Diagnosis: Principal Brief History This is a 61 year old male patient CBC/BMP: 01/08/17 0625 01/08/17 0625 Significant Findings Laboratory Tests Test 01/08/17 06:25 Hemoglobin 10.7 GM/DL (13.0-17.0) Hematocrit 33.0 % (39.0-51.0) Blood Urea Nitrogen 19 MG/DL (7-18) Estimat Glomerular Filtration 69 ML/MIN (>89) Rate Random Glucose 127 MG/DL (74-106) Calcium Level 8.3 MG/DL (8.5-10.1) Phosphorus Level 2.4 MG/DL (2.5-4.9) Total Protein 6.3 GM/DL (6.4-8.2) Cholesterol Level 103 MG/DL (120-200) PE at Discharge Dressings dry and intact. No calf tenderness. Hospital Course patient underwent bilateral total knees on day of admission. He received a course of prophylactic IV antibiotics and began anticoagulation therapy within 23 hours of surgery. He remained afebrile and vital signs were stable. He tolerated PT and daily wound care. Tolerated food and fluids well and was discharged to Rehab facility for continuation of care on POD #2 in good condition, tolerating PO pain meds. Pt Condition on Discharge: Good Discharge Disposition: Rehab Inpatient Discharge Instructions Diet Instructions: As Tolerated, No Restrictions Activities You Can Perform: Weight Bearing as Alfonso, Shower Only-No Bath Activities to Avoid: Bathing, Driving Addison Worley MD Jan 08, 2017 11:13
[2017-01-08 12:00] VITALS: BP 118/68; PULSE 99; RESP 20; TEMP 99.5; O2SAT 100
[2017-01-08] MEDS: ENOXAPARIN SODIUM 30 MG/0.3 ML SYRINGE SQ SCH ×2 (12:38→23:45)
[2017-01-08 15:05] VITALS: BP 147/75; PULSE 88; RESP 16; TEMP 98.7; O2SAT 96
[2017-01-08 19:00] VITALS: BP 128/74; PULSE 91; RESP 18; TEMP 96.8; O2SAT 94
[2017-01-08] MEDS: MULTIVITAMINS/MINERALS THERAPEUTIC TAB PO SCH (19:38)
[2017-01-08] MEDS: DOCUSATE SODIUM 100 MG CAP PO SCH (19:39)
[2017-01-08] MEDS: PRAVASTATIN SOD 80 MG TAB PO SCH (19:39)
[2017-01-08] MEDS: KETOROLAC TROMETHAMINE 10 MG TAB PO SCH (19:39)
[2017-01-08] MEDS: LISINOPRIL 20 MG TAB PO SCH (19:39)
[2017-01-09] VITALS: BP 94/57; PULSE 84; RESP 17; TEMP 98; O2SAT 95
[2017-01-09] MEDS: LACTATED RINGER'S 1000 ML INJ 1,000 ML IV SCH (00:50)
[2017-01-09] MEDS: oxyCODONE/ACETAMINOPHEN 5 MG/325 MG TAB PO PRN ×3 (02:27→11:45)
[2017-01-09 04:00] VITALS: BP 118/62; PULSE 84; RESP 16; TEMP 98.3; O2SAT 96
[2017-01-09] MEDS: KETOROLAC TROMETHAMINE 10 MG TAB PO SCH ×2 (04:17→11:41)
[2017-01-09] MEDS: MORPHINE SULFATE 30 MG CONTROLLED RELEASE TAB PO SCH ×2 (05:32→14:01)
[2017-01-09 05:33] LABS: HEMATOCRIT 30.6 % (39.0-51.0); REVIEW FLAG FINAL
[2017-01-09] MEDS: GABAPENTIN 300 MG CAP PO SCH ×2 (07:33→14:01)
[2017-01-09] MEDS: FENOFIBRATE 48 MG TAB PO SCH (07:33)
[2017-01-09] MEDS: METAXALONE 800 MG TAB PO SCH ×2 (07:33→13:00)
[2017-01-09] MEDS: SERTRALINE HCL 50 MG TAB PO SCH (07:33)
[2017-01-09] MEDS: MULTIVITAMINS/MINERALS THERAPEUTIC TAB PO SCH (07:33)
[2017-01-09] MEDS: POLYETHYLENE GLYCOL 17 GM PKG PO SCH (07:33)
[2017-01-09] MEDS: DOCUSATE SODIUM 100 MG CAP PO SCH (07:34)
[2017-01-09] MEDS: SODIUM CHLORIDE 0.9% FLUSH 5 ML FLUSH IVF SCH (07:34)
--- NOTE | 2017-01-09 07:54 | PD.ORT.PN ---
Subjective Subjective Remarks pt basically comfortable at present. In bed at moment. Painful last night. Objective Vitals Vital Signs Date Time Temp Pulse Resp B/P Pulse Ox O2 Delivery O2 Flow Rate FiO2 01/09/17 04:00 98.3 84 16 118/62 96 01/09/17 04:00 98.3 84 16 118/62 96 01/09/17 00:00 98.0 84 17 94/57 95 01/08/17 19:00 96.8 91 18 128/74 94 01/08/17 17:54 16 01/08/17 15:05 98.7 88 16 147/75 96 01/08/17 13:46 16 01/08/17 13:42 16 01/08/17 12:00 99.5 99 20 118/68 100 01/08/17 09:10 16 01/08/17 07:56 99.9 100 20 115/73 92 I/O 01/08/17 01/08/17 01/08/17 01/09/17 01/09/17 01/09/17 07:00 15:00 23:00 07:00 15:00 23:00 Intake Total 1624 ml 500 ml 480 ml 480 ml Output Total 2450 ml 700 ml 900 ml 800 ml Balance -826 ml -200 ml -420 ml -320 ml Intake Oral 960 ml 500 ml 480 ml 480 ml IV Total 664 ml Output Urine Total 2450 ml 700 ml 900 ml 800 ml # Bowel Movements 0 0 0 Result Diagram: 01/09/17 0507 01/08/17 0625 Imaging Last 24 hours Impressions Knee X-Ray 01/07/17 1201 Signed Impressions: Service Date/Time: January 13:16 - CONCLUSION: Good position and alignment on this postoperative examination. German Dorsey MD Objective Remarks Dressings dry and intact. No calf tenderness. Assessment & Plan Ortho Post Op Day #: 2 Problem List: (1) Status post total bilateral knee replacement using cement Assessment and Plan Cont PT, daily wound care[facility] Addison Worley MD Jan 09, 2017 07:54
[2017-01-09 08:00] VITALS: BP 117/66; PULSE 78; RESP 18; TEMP 97.9; O2SAT 98
--- NOTE | 2017-01-09 09:09 | HHI.PR ---
Subjective Remarks Follow up bilateral knee replacement. Patient seen and examined today. Lying awake in bed, pain controlled, tolerating PO, denies nausea. No BM as of yet, requesting additional softener. Motivated to engage in physical therapy today. Denies any acute events overnight. Awaiting placement for [place] inpatient rehab. Objective Vitals Vital Signs Date Time Temp Pulse Resp B/P Pulse Ox O2 Delivery O2 Flow Rate FiO2 01/09/17 04:00 98.3 84 16 118/62 96 01/09/17 04:00 98.3 84 16 118/62 96 01/09/17 00:00 98.0 84 17 94/57 95 01/08/17 19:00 96.8 91 18 128/74 94 01/08/17 17:54 16 01/08/17 15:05 98.7 88 16 147/75 96 01/08/17 13:46 16 01/08/17 13:42 16 01/08/17 12:00 99.5 99 20 118/68 100 01/08/17 09:10 16 I/O 01/08/17 01/08/17 01/08/17 01/09/17 01/09/17 01/09/17 07:00 15:00 23:00 07:00 15:00 23:00 Intake Total 1624 ml 500 ml 480 ml 480 ml Output Total 2450 ml 700 ml 900 ml 800 ml Balance -826 ml -200 ml -420 ml -320 ml Intake Oral 960 ml 500 ml 480 ml 480 ml IV Total 664 ml Output Urine Total 2450 ml 700 ml 900 ml 800 ml # Bowel Movements 0 0 0 Result Diagram: 01/09/17 0507 01/08/17 0625 Other Results Laboratory Tests Test 01/07/17 01/08/17 01/09/17 06:45 06:25 05:07 Blood Type AB POSITIVE Antibody Screen NEGATIVE Blood Bank Comment Sodium Level 138 MEQ/L Potassium Level 4.0 MEQ/L Chloride Level 104 MEQ/L Carbon Dioxide Level 28.3 MEQ/L Anion Gap 6 MEQ/L Blood Urea Nitrogen 19 MG/DL Creatinine 1.09 MG/DL Estimat Glomerular Filtration 69 ML/MIN Rate Random Glucose 127 MG/DL Calcium Level 8.3 MG/DL Phosphorus Level 2.4 MG/DL Magnesium Level 1.9 MG/DL Total Bilirubin 0.5 MG/DL Aspartate Amino Transf 21 U/L (AST/SGOT) Alanine Aminotransferase 22 U/L (ALT/SGPT) Alkaline Phosphatase 67 U/L Total Protein 6.3 GM/DL Albumin 3.4 GM/DL Triglycerides Level 97 MG/DL Cholesterol Level 103 MG/DL LDL Cholesterol 43 MG/DL HDL Cholesterol 40.2 MG/DL Cholesterol/HDL Ratio 2.56 RATIO Thyroid Stimulating Hormone 0.670 uIU/ML 3rd Gen Hemoglobin 10.2 GM/DL Hematocrit 30.6 % Imaging Last Impressions Knee X-Ray 01/07/17 1201 Signed Impressions: Service Date/Time: January 13:16 - CONCLUSION: Good position and alignment on this postoperative examination. German Dorsey MD Objective Remarks GENERAL: Well-nourished, well-developed patient, in no apparent distress. SKIN: warm and dry. Bilateral knee/leg dressings in place, c/d/i. HEENT: Atraumatic. Normocephalic. Pupils equal round and reactive. Extraocular motions intact. No scleral icterus. Nose without bleeding. Airway patent. NECK: Trachea midline. No JVD. Supple. CARDIOVASCULAR: Regular rate and rhythm. No murmur appreciated. RESPIRATORY: Clear to auscultation. Breath sounds equal bilaterally. No wheezes , rales, or rhonchi. GASTROINTESTINAL: Abdomen soft, non-tender, nondistended. No guarding. MUSCULOSKELETAL: Extremities without clubbing, cyanosis, or edema. NEUROLOGICAL: Awake and alert. Cranial nerves II through XII intact. Motor and sensory grossly within normal limits. Five out of 5 muscle strength in all muscle groups. Normal speech. Procedures Status post Bilateral Knee replacement 01/07/17 Urinary Catheter: No Vascular Central Line Catheter: No A/P Problem List: (1) Osteoarthritis of knees, bilateral ICD Code: M17.0 Status: Acute (2) Status post total bilateral knee replacement using cement ICD Code: Z96.653 Status: Acute Assessment and Plan Mr. Andrade is a 61-year-old male patient with a known medical history of osteoarthritis of bilateral knee and shoulders, hypertension, dyslipidemia, anxiety and chronic back pain due to degenerative disc disease who underwent a bilateral knee replacement by Dr. Worley today 01/07/17. Hospitalist team has been consulted for medical management and assisting with pain control. Status post bilateral knee replacement - Post op day 2, 01/07/17 - Control pain, Oramorph SR 30 mg PO q8hr. Percocet 5/325 mg PO q4h PRN per pain scale. Morphine DEALER COMPLIANCE REPRESENTATIVE IV per protocol. Adequately controlled at this time. - Monitor for nausea, Zofran 4 mg IV q6h. Denies any current nausea. - Acetaminophen available PRN fever. Afebrile. - Encourage PO intake as tolerated. - No BM as of yet. Continue Colace 100 mg PO BID, Miralax scheduled and Dulcolax supp PRN. Add MOM x 1 this am. Hypertension, chronic: Resume Lisinopril. Monitor BP. Controlled. Dyslipidemia, chronic: Resume home fenofibrate and Pravastatin Anxiety, chronic: Alprazolam 0.25 mg PO daily PRN anxiety and resume home Sertraline 50 mg PO daily. Back pain, chronic: Gabapentin 600 mg PO TID and Metaxalone 800 mg PO TID. GI Prophylaxis: Pepcid DVT Prophylaxis: Lovenox 30 mg sq q12 hr. Discharge Planning Last CM note: 01/08/2017 Patient authorized and accepted to [facility] for the weekend per Maryanne. DC order is in system for Wednesday. CM will follow and assist - Renetta from [facility] working this weekend and can be called when patient cleared and ready for transfer. Attending Statement Seen in his bedroom, awaiting final recommendations by Orthopedic Surgery for discharge, clear for discharge to Rehab from medicine standpoint. Anastacia Perera Jan 09, 2017 09:08 Ranjith Villatoro MD Jan 09, 2017 16:57
[2017-01-09] MEDS ORDERED: MAGNESIUM HYDROXIDE SUSP 30 ML CUP PO ONE (09:15)
[2017-01-09] MEDS ORDERED: BACITRACIN OINT 0.9 GM PKT TOP PRN (10:15)
[2017-01-09] MEDS: ENOXAPARIN SODIUM 30 MG/0.3 ML SYRINGE SQ SCH (11:41)
[2017-01-09 12:15] VITALS: BP 94/61; PULSE 87; RESP 18; TEMP 97.3; O2SAT 94
== END 2017-01-09 14:53 | DRG 462 ==
LOC: HSDC 05:54 → EDSTATUS 08:00 → HSDI 08:32 → N06A 14:33
PROVIDERS: ADMIT Surgery; ATTEND Surgery
PROC: 0SRD0J9 Replacement of Left Knee Joint with Synthetic Substitute, Cemented, Open Approach (ICD-10-PCS; 2017-01-07)
PROC: 0SRC0J9 Replacement of Right Knee Joint with Synthetic Substitute, Cemented, Open Approach (ICD-10-PCS; principal; 2017-01-07 07:43)
DX: M17.0 Bilateral primary osteoarthritis of knee (principal); I10 Essential (primary) hypertension; M25.762 Osteophyte, left knee; M25.761 Osteophyte, right knee; F41.9 Anxiety disorder, unspecified; G89.29 Other chronic pain; E78.5 Hyperlipidemia, unspecified; M54.9 Dorsalgia, unspecified; M51.36 Other intervertebral disc degeneration, lumbar region; Z96.611 Presence of right artificial shoulder joint; Z96.612 Presence of left artificial shoulder joint; Z85.46 Personal history of malignant neoplasm of prostate
CPT/HCPCS: 73560; 80053; 80061; 83735; 84100; 84443; 85014; 85018; 86850; 86900; 86901; 94150; C1776; C9290; J0131; J0690; J1100; J1170; J1650; J2250; J2270; J2370; J2405; J2795; J3010; J3370; J7050; J7120; L1830